=== PATIENT | male | born 1960 | race Two or more races ===

== ENCOUNTER 2020-09-09 23:03 | Emergency (ER) | payer OTHER ==
[~2020-09-09] VITALS: Ht 175.3 cm; Wt 89.8 kg
[2020-09-09] MEDS ORDERED: NORVASC2.5 M1 (23:22)
[2020-09-09] MEDS ORDERED: CARVEDILOL ER40 MG (23:22)
[2020-09-09] MEDS ORDERED: LIPITOR40 M1 (23:23)
[2020-09-09] MEDS ORDERED: COZAAR100 MG (23:23)
[2020-09-09] MEDS ORDERED: NASAL MIST126 ML ×2 (23:23→23:24)
[2020-09-09] MEDS ORDERED: HYDROCHLOROTHIA25 MG (23:26)
== END 2020-09-10 02:12 | disposition home or self-care (01) ==
LOC: ER 23:03
DX: I16.0 Hypertensive urgency (principal); I10 Essential (primary) hypertension

== ENCOUNTER 2022-05-30 18:56 | Emergency (ER) | payer OTHER ==
[~2022-05-30] VITALS: Ht 175.3 cm; Wt 97.5 kg
[~2022-05-30 18:56] MED LIST: CARVEDILOL ER40 MG; COZAAR100 MG; HYDROCHLOROTHIA25 MG; LIPITOR40 M1; NASAL MIST126 ML; NORVASC2.5 M1
== END 2022-05-30 23:48 | disposition home or self-care (01) ==
LOC: ER 18:56
DX: K59.00 Constipation, unspecified (principal); R10.84 Generalized abdominal pain; I10 Essential (primary) hypertension; Z91.018 Allergy to other foods